=== PATIENT | male | born 1965 | race Caucasian/White ===

== ENCOUNTER 2018-08-03 18:49 | Emergency (ER) | payer OTHER ==
[~2018-08-03 18:49] MED LIST: ISOVUE-370 76%-LOCM 1 ML ONE
[2018-08-03] MEDS ORDERED: Ondansetron PF 4 MG/2 ML Vial ONE (19:14)
[2018-08-03 19:51] LABS: #Lymphocytes 1.5 thou/uL (1.20-3.40); #Monocytes 1.2 thou/uL (0.11-0.59); #Neutrophils 6.8 thou/uL (1.40-6.50); %Basophils 0.2 % (0.0-1.0); %Eosinophils 0.3 % (0.0-10.0); %Lymphocytes 15.3 % (21.0-51.0); %Monocytes 12.7 % (0.0-10.0); %Neutrophils 71.5 % (42.0-75.0); Hemoglobin 14.8 g/dL (14.0-18.0); Mean Corpuscular HGB CONC 32.9 g/dL (32.0-36.0); Mean Corpuscular Volume 94.1 fL (78.0-98.0); Mean Platelet Volume 7.2 fL (7.4-10.4); Platelet Count 290 thou/uL (130-400); RBC Distribution Width 11.8 % (11.5-14.5); Red Blood Cell (RBC) Count 4.76 mill/uL (4.70-6.10); White Blood Cell (WBC) Count 9.6 thou/uL (4.8-10.8)
[2018-08-03 20:20] LABS: ALT (SGPT) 24 U/L (8-55); AST (SGOT) 19 U/L (5-34); Albumin 4.5 g/dL (3.5-5.0); Alkaline Phosphatase 70 U/L (40-150); Anion Gap 17 mmol/L (10-20); BUN (Urea Nitrogen) 28 mg/dL (8.4-25.7); Bilirubin, Total 0.7 mg/dL (0.2-1.2); Calc. Creatinine Clearance 0 mL/min (70-130); Calcium 9.6 mg/dL (7.8-10.44); Carbon Dioxide 25 mmol/L (22-29); Chloride 103 mmol/L (98-107); Estimated GFR-MDRD 62; Globulin 3.4 g/dL (2.4-3.5); Glucose 114 mg/dL (70-105); Lipase 8 U/L (8-78); Potassium 4.9 mmol/L (3.5-5.1); Protein, Total 7.9 g/dL (6.0-8.3); Sodium 140 mmol/L (136-145)
[2018-08-03 20:38] LABS: Bilirubin Small (Negative); Blood, Urine Negative (Negative); Clarity CLEAR (Clear); Glucose, Urine (Dipstick) Negative (Negative); Leukocyte Negative (Negative); Nitrite Negative (Negative); Protein, Urine (Dipstick) 30 mg/dL (Neg-Trace); Specific Gravity, Urine 1.025 (1.002-1.036); pH, Urine 5.5 (5.0-9.0)
[2018-08-03 20:42] LABS: Bacteria/HPF None Seen HPF (None Seen); Pathc Cast-AUWi Flag 2.44 (0-2.49); RBC/HPF 0-3 HPF (0-3); Squamous Epithelial 0-3 HPF (0-3); WBC/HPF 0-3 HPF (0-3)
[2018-08-03] MEDS ORDERED: Morphine 4 MG/ML VIAL ONE (20:48)
[2018-08-03 20:51] LABS: Hyaline Casts/LPF 0-3 HYALINE CAST LPF (0-3 Hyaline)
--- NOTE | 2018-08-03 21:41 | CT ---
EXAM: Abdomen and pelvic CT scan with contrast: HISTORY: Pain COMPARISON: None FINDINGS: The visualized lung bases are clear. Liver: Unremarkable. Gallbladder:Unremarkable. Pancreas:Unremarkable Spleen:Unremarkable. Adrenal glands:Unremarkable. Kidneys:Nonvisualized left kidney. Unremarkable right kidney without hydronephrosis.No mass or cyst o f the right kidney. Evidence for moderate to severe small bowel obstruction with dilated small bowel loops with probable transition zone at the proximal mid ileum region having an appearance, nonspecific but possibly adhesion, nondilated distal ileum. Occasional sigmoid diverticulosis but no acute diverticulitis. No CT evidence for acute appendicitis. The urinary bladder is unremarkable. No abscess, adenopathy, or abnormal fluid collection within the abdomen or pelvis. IMPRESSION: Evidence for small bowel obstruction with a transition zone probably in the proximal mid ileum region with nondilated distal ileum. Nonvisualized left kidney.
[2018-08-03] MEDS ORDERED: Benzocaine 20% Spray 60 ML CAN ONE (22:10)
[2018-08-03] MEDS ORDERED: Lidocaine Viscous Sol 2% 15 ml UD Cup ONE (22:10)
[2018-08-03] MEDS ORDERED: Piperacillin/Tazobactam 3.375 GM VIAL ONE ×2 (22:51)
[2018-08-03] MEDS ORDERED: Sodium Chloride 0.9% 100 ML ONE (22:51)
--- NOTE | 2018-08-03 23:00 | RAD ---
KUB ONE VIEW: History: Small bowel obstruction. NG tube placement for position evaluation. FINDINGS: The tip of the NG tube does extend into the stomach although I think the sidehole is still above the level of the esophagus. This could probably be advanced somewhat to have the sidehole extend down int o the stomach. Evidence for small bowel obstruction. IMPRESSION: NG tube tip in the stomach although the sidehole appears to be in the distal esophagus. POS: [facility]
== END 2018-08-03 23:56 | disposition short-term general hospital (02) ==
LOC: ERS 18:49
DX: K56.609 Unspecified intestinal obstruction, unspecified as to partial versus complete obstruction (principal); F17.210 Nicotine dependence, cigarettes, uncomplicated
CPT/HCPCS: 36415; 74018; 74177; 80053; 81003; 81015; 83690; 85025; 96365; 96375; J2270; J2405; J2543; J3490; Q9966